=== PATIENT | female | born 1980 | race Caucasian/White ===

== ENCOUNTER 2019-04-13 15:20 | Emergency (ER) | payer OTHER ==
[~2019-04-13] VITALS: Ht 157.5 cm; Wt 83.9 kg
[2019-04-13 15:36] VITALS: Ht 157.5 cm; Wt 83.9 kg
[2019-04-13 17:43] LABS: BASOPHIL % 0.4 % (0-2); PLATELET COUNT 255 x10^3mcL (130-400)
[2019-04-13 17:45] LABS: UA SPECIFIC GRAVITY 1.015 (1.005-1.035); microscopic required? YES; urine erythrocyte 1+ (NEGATIVE)
[2019-04-13 17:45] LABS: CALCIUM 8.3 mg/dL (8.5-10.1); CHLORIDE SERUM 104 mmol/L (98-107); CREATININE SERUM 0.6 mg/dL (0.6-1.0); GFR1 > 60 mL/min; GLUCOSE SERUM 92 mg/dL (74-106); POTASSIUM SERUM 4.1 mmol/L (3.5-5.1); SODIUM SERUM 141 mmol/L (136-145)
[2019-04-13 17:53] LABS: ALBUMIN 3.6 g/dL (3.4-5.0); ALKALINE PHOSPHATASE 78 U/L (46-116); ALT/SGPT 108 U/L (14-59); AST/SGOT 108 U/L (15-37); BILIRUBIN TOTAL 1.4 mg/dL (0.20-1.00); LIPASE 104 IU/L (73-393)
[2019-04-13 19:40] VITALS: BP 136/86
== END 2019-04-13 19:40 | disposition home or self-care (01) ==
LOC: ED 15:20
PROVIDERS: Emergency Medicine
DX: K80.70 Calculus of gallbladder and bile duct without cholecystitis without obstruction (principal); Z88.1 Allergy status to other antibiotic agents; Z88.2 Allergy status to sulfonamides
CPT/HCPCS: J1885; J2405; Q0092